=== PATIENT | female | born 1975 ===

== ENCOUNTER 2017-01-02 19:18 | Emergency (ER) | payer MEDICAID ==
[2017-01-02 19:36] VITALS: BP 144/93; PULSE 91; RESP 18; TEMP 98.2; O2SAT 100
--- NOTE | 2017-01-02 20:33 | ED PDOC ---
HPI: Abdomen Time Seen by Provider: 01/02/17 19:42 Chief Complaint (Nursing): Abdominal Pain Chief Complaint (Provider): Abdominal Pain History Per: Patient History/Exam Limitations: no limitations Onset/Duration Of Symptoms: Days (x2) Current Symptoms Are (Timing): Better Additional Complaint(s): Yesika Miranda is a 41 year old female, 4 weeks , with previous medical history of hypertension who presents to the emergency department with a complaint of lower abdominal pain status post sneezing 1 day ago. Denied fever, chills, vaginal bleeding or discharge. Patient feels significant improvement since initial onset but is brought into ED today concerned for . PMD: none provided Past Medical History Reviewed: Historical Data, Nursing Documentation, Vital Signs Vital Signs: Last Vital Signs Temp 98.2 F 01/02/17 19:33 Pulse 91 H 01/02/17 19:33 Resp 18 01/02/17 19:33 BP 144/93 H 01/02/17 19:33 Pulse Ox 100 01/02/17 20:35 - Medical History PMH: HTN - Family History Family History: States: Unknown Family Hx - Social History Current smoker - smoking cessation education provided: No Alcohol: None Drugs: Denies - Allergies Allergies/Adverse Reactions: Allergies Allergy/AdvReac Type Severity Reaction Status Date / Time Latex, Natural Rubber Allergy RASH Verified 01/02/17 19:33 vanilla Allergy RASH Uncoded 01/02/17 19:32 Review of Systems ROS Statement: Except As Marked, All Systems Reviewed And Found Negative Constitutional: Negative for: Fever, Chills Gastrointestinal: Positive for: Abdominal Pain (lower) Genitourinary Female: Negative for: Vaginal Discharge, Vaginal Bleeding Physical Exam - Reviewed Nursing Documentation Reviewed: Yes - Physical Exam Appears: Positive for: Well, Non-toxic, No Acute Distress Head Exam: Positive for: ATRAUMATIC, NORMAL INSPECTION, NORMOCEPHALIC Skin: Positive for: Normal Color Cardiovascular/Chest: Positive for: Regular Rate, Rhythm Respiratory: Positive for: CNT, Normal Breath Sounds Gastrointestinal/Abdominal: Positive for: Tenderness (suprapubic ). Negative for: Normal Exam Extremity: Positive for: Normal ROM Neurologic/Psych: Positive for: Alert, doctor of naprapathy II-XII, Oriented - ECG O2 Sat by Pulse Oximetry: 100 (RA) Pulse Ox Interpretation: Normal Medical Decision Making Medical Decision Making: Initial Impression: Abdominal pain; Initial Plan: * Urine dipstick * Urinalysis * US transvag Time: 2213 --US transvag FINDINGS: Fetus: There is a single living intrauterine gestation in breech presentation. There is a heart rate of 167 beats minute. Placenta: Placenta is posteriofundal and grade 0. There is no previa. Amniotic fluid: Amniotic fluid line appears normal Anatomy: Early gestational age limits evaluation of anatomy., Body and upper extremities were identified BIOMETRICS Gestational age by US: 17 weeks 1 day EFW: 177.7 g BPD: 3.7 cm, 17 weeks 2 days HC: 13.5 cm, 17 weeks 0 days AC: 10.99 cm, 16 weeks 6 days FL: 2.38 cm, 17 weeks 1 day MATERNAL: Cervix: Cervix measures approximately 4.7 cm in length transabdominally. IMPRESSION: 17 week 1 day single breech fetus, estimated date of delivery ; no previa Time: 2219 --Patient informed of results. She continues to feel well in ED and will follow up with [employer]ERO[employer] ATTENDANT. Clinical Impression: Abdominal pain; Scribe Attestation: Documented by Grace Olguin, acting as a scribe for Khris Strickland MD. Provider Scribe Attestation: All medical record entries made by the Scribe were at my direction and personally dictated by me. I have reviewed the chart and agree that the record accurately reflects my personal performance of the history, physical exam, medical decision making, and the department course for this patient. I have also personally directed, reviewed, and agree with the discharge instructions and disposition. Disposition - Clinical Impression Clinical Impression: Abdominal pain during - Patient ED Disposition Is Patient to be Admitted: No Doctor Will See Patient In The: Office Counseled Patient/Family Regarding: Studies Performed, Diagnosis, Need For Followup, Rx Given - Disposition Disposition: Routine/Home Disposition Time: 22:20 Condition: STABLE Instructions: Abdominal Pain in (ED) Forms: [facility] ([place] Islander)
[2017-01-02 20:48] LABS: URINE BILIRUBIN NEGATIVE (NEGATIVE); URINE BLOOD NEGATIVE (NEGATIVE); URINE COLOR YELLOW (YELLOW); URINE GLUCOSE (UA) NEG (Normal); URINE KETONE NEGATIVE (NEGATIVE); URINE LEUKOCYTE ESTERASE TRACE Leu/uL (Negative); URINE PROTEIN NEGATIVE (NEGATIVE); URINE UROBILINOGEN 0.2-1.0 mg/dL (0.2-1.0)
--- NOTE | 2017-01-02 22:14 | US ---
EXAM: US After First Trimester, Transabdominal CLINICAL HISTORY: 41 years old, female; Pain; Other: Abd pain; Gestational age or lmp: 09/12/16; ; Additional info: Preg vag bld TECHNIQUE: Real-time transabdominal obstetrical ultrasound of the maternal pelvis and a second or third trimester with image documentation. EXAM DATE/TIME: 01/02/2017 7:49 PM COMPARISON: There are no prior studies for comparison. FINDINGS: Fetus: There is a single living intrauterine gestation in breech presentation. There is a heart rate of 167 beats minute. Placenta: Placenta is posteriofundal and grade 0. There is no previa. Amniotic fluid: Amniotic fluid line appears normal Anatomy: Early gestational age limits evaluation of anatomy., Body and upper extremities were identified BIOMETRICS Gestational age by US: 17 weeks 1 day EFW: 177.7 g BPD: 3.7 cm, 17 weeks 2 days HC: 13.5 cm, 17 weeks 0 days AC: 10.99 cm, 16 weeks 6 days FL: 2.38 cm, 17 weeks 1 day MATERNAL: Cervix: Cervix measures approximately 4.7 cm in length transabdominally. IMPRESSION: 17 week 1 day single breech fetus, estimated date of delivery 06/11/17; no previa
== END 2017-01-02 22:34 | disposition home or self-care (01) ==
LOC: H.ER 19:18
DX: O26.892 Other specified pregnancy related conditions, second trimester (principal)

== ENCOUNTER 2017-02-26 15:33 | Emergency (ER) | payer MEDICAID ==
--- NOTE | 2017-02-26 19:31 | OBHP ---
Datetime: 02/26/2017 17:35 IP Adm Impression: , intrauterine IP Admit Plan: Discharge home Admit Comment, IP Provider: 41 yo female at 24 weeks 4 days gestation confirmed by US at 5 week s with FRANCIS on 06/14 presents with reduced movments since 6am this morning. States that she was visiting her OB and was advised to go to the ED to be evaluated. Denies vaginal bleeding, gush of flu id, contractions, fever, cough, dysuria, n/v/d, CP, SOB. Prental Care: Pt sees Dr. North at [facility]. States that she does not have any paperw ork with her but reports that her PNC has been normal thus far and denies any abnormal lab or imaging results. Obstretrics Hx: First . Denies abortions, or miscarriages. [employer] Attendant History: Papsmear done 1 year ago normal as per patient PMHx: Newly diagnosed Chronic HTN (3 months before ) No surgical Hx Medication: Methyldopa 250 mg, PNV, Folic Acid Allergies: Latex (rash) Social Hx: Denies smoking, alcohol, or drug use Triage Vitals: BP 122/60, Afebrile Physical Exam: General: Pt seen lying in bed comfortably, Alert and Oriented HEENT: No pallor, facial edema, or jaundice CV: RRR, Normal S1, S2, no murmurs, No pedal edema Pulm: Not in any respiratory disress Abdomen: Gravid, NT FHR: 140's, moderate variability, accelerations, no decels (Catergory I) Assessment and Plan: IUP at 24 weeks 4 days gestation, not in active labor. Patient states she is now experiencing feta l movements. FHR tracings are reassuring. Will be discharged and is advised to f/u with OB appt as sc heduled. labor precautions given. Discussed case with Dr. Susan Black, PGY1 OB H addendum: OB hospitalist addendum Patient seen in examined by me. Agree with above assessment and plan with following modification. O: heart rate 140s positive positive accelerations to the 160 moderate variability toco show s no contractions Impression reactive nonstress test Plan: DC home Follow up as scheduled for next OB appointment. Pelvic Type - PN: Adequate Extremities - PN: Normal Abdomen - PN: Normal Back - PN: Normal Breast - PN: Normal Lungs - PN: Normal Heart - PN: Normal Thyroid - PN: Normal Neurologic - PN: Normal HEENT - PN: Normal General - PN: Normal FHR - Baseline A Provider: 140 EGA AdmitDate IP: 24.0 Vital Signs Provider: Reviewed; Within Normal Limits IP Chief Complaint: Decreased movement NICHD Variability Prov Fetus A: Moderate 6-25bpm NICHD Accel Fetus A IP Provider: 10X10 FHR Category Provider Fetus A: Category I NICHD Decel Fetus A IP Provider: None Genitourinary Exam: Normal DTRs - PN: Normal
[2017-02-26 21:34] VITALS: BP 128/78; PULSE 89
== END 2017-02-26 17:00 | disposition home or self-care (01) ==
LOC: H.EROB2 15:33 → H.L&D 16:06 → H.EROB2 17:00
DX: O47.02 False labor before 37 completed weeks of gestation, second trimester (principal); Z3A.24 24 weeks gestation of pregnancy

== ENCOUNTER 2018-08-30 13:55 | Emergency (ER) | payer BC, OTHER ==
[2018-08-30 14:00] VITALS: TEMP 97.5; O2SAT 100
--- NOTE | 2018-08-30 14:39 | ED PDOC ---
Upper Extremity Pain/Injury Time Seen by Provider: 08/30/18 14:02 Chief Complaint (Nursing): Abnormal Skin Integrity Chief Complaint (Provider): Abnormal Skin Integrity History Per: Patient History/Exam Limitations: no limitations Onset/Duration Of Symptoms: Mins (just [employer] PROFESSIONAL) Additional Complaint(s): 42 year old right-hand dominant female with a medical history of hypertension, arrives to the emergency department with complaints of pain to her right, 4th finger status post slicing her finger on a soup can lid prior to arrival. She reports washing the wound immediately with soap and water but did not take pain medication upon onset as she had taken Tylenol around 1130am prior to this incident. Patient is presumably up-to-date with tetanus shot from last year. No other complaints. Denies recent fever, loss of sensation. PCP: Dr. Nuha Alvarado Past Medical History Reviewed: Historical Data, Nursing Documentation, Vital Signs Vital Signs: Last Vital Signs Temp 97.5 F L 08/30/18 13:56 Pulse 83 08/30/18 13:56 Resp 17 08/30/18 13:56 BP 168/90 H 08/30/18 13:56 Pulse Ox 100 08/30/18 13:56 - Medical History PMH: HTN - Family History Family History: States: Unknown Family Hx - Immunization History Hx Tetanus Toxoid Vaccination: Yes - Home Medications Home Medications: Ambulatory Orders Medication Instructions Recorded Acetaminophen [Acetaminophen 8 650 mg PO Q8 PRN #21 tablet.er 08/30/18 Hour] Bacitracin Ointment [Bacitracin] 1 applic TOP BID #1 tube 08/30/18 - Allergies Allergies/Adverse Reactions: Allergies Allergy/AdvReac Type Severity Reaction Status Date / Time Latex, Natural Rubber Allergy RASH Verified 01/02/17 19:33 vanilla Allergy RASH Uncoded 01/02/17 19:32 Review of Systems ROS Statement: Except As Marked, All Systems Reviewed And Found Negative Musculoskeletal: Positive for: Other (right hand, 4th digit laceration) Physical Exam - Reviewed Nursing Documentation Reviewed: Yes Vital Signs Reviewed: Yes - Physical Exam Comments: GENERAL APPEARANCE: Patient is awake, alert, oriented x 3, in no acute distress. Resting comfortably. SKIN: Warm, dry; (-) cyanosis. NECK: Supple, FROM ENT: Mucus membranes moist. Airway patent, (-) stridor. CHEST AND RESPIRATORY:(-) rales, (-) rhonchi, (-) wheezes; breath sounds equal bilaterally. Respirations even and nonlabored. HEART AND CARDIOVASCULAR: (-) irregularity UPPER EXTREMITIES: To the radial aspect of the distal right 4th phalanx just p roximal to nail (+) 0.75cm linear, superficial laceration, (+) active bleeding, and (+) mild, localized tenderness (-) ecchymosis (-) surrounding erythema or cellulitis (-) edema (-) nail involvement. Sensation intact throughout. Normal ROM of right hand, wrist, and all digits. Cap refill <2 seconds. NEURO AND PSYCH: Mental status as above. Gait: steady. Speech: clear. (-) facial asymmetry. - ECG O2 Sat by Pulse Oximetry: 100 (RA) Pulse Ox Interpretation: Normal Medical Decision Making Medical Decision Making: Initial Impression: finger laceration of rigth 4th digit Initial Plan: * Dermabond for wound closure * Wound irrigated with normal saline and betadine solution. * Patient declined pain medication in ED. Time: 1435 --Laceration repair of right 4th digit performed with Dermabond by Carmine PAGE. Patient tolerated procedure well. No complications. Educated on wound care. --Repeat BP: 138/78. Lab/Diagnostic results d/w the patient in great detail. Diagnosis of finger laceration d/w the patient. Based on history, exam and diagnostic results, plan will be for outpatient follow up with PMD. Patient instructed to follow-up with pmd / referral provided / the clinic in 1- 2 days without fail. Advised to take medication as prescribed. Return to the emergency room at any time for any new or worsening symptoms. Patient states she fully agrees with and understands discharge instructions. States that she agrees with the plan and disposition. Verbalized and repeated discharge in structions and plan. I have given the patient opportunity to ask any additional questions. Scribe Attestation: Documented by Grace Olguin, acting as a scribe for Cindi Lou PA-C. Provider Scribe Attestation: All medical record entries made by the Scribe were at my direction and personally dictated by me. I have reviewed the chart and agree that the record accurately reflects my personal performance of the history, physical exam, medical decision making, and the department course for this patient. I have also personally directed, reviewed, and agree with the discharge instructions and disposition. Procedures - Laceration/Wound Repair Finger Laceration- R 4th Digit Wound Length (cm): 0.75 Wound's Depth, Shape: superficial, linear Wound Explored: clean Irrigated w/ Saline (ccs): 100 Betadine Prep?: Yes Wound Debrided: minimal Wound Repaired With: Skin adhesive Layer Closure?: No Wound Complexity: Simple Disposition - Clinical Impression Clinical Impression: Finger laceration - Patient ED Disposition Is Patient to be Admitted: No Counseled Patient/Family Regarding: Studies Performed, Diagnosis, Need For Followup, Rx Given - Disposition Referrals: primary, doctor [Other] Jackelin Oliver MD [Medical Doctor] - Disposition: Routine/Home Disposition Time: 14:40 Condition: STABLE Additional Instructions: The emergency medical care you received today was directed at your acute symptoms. If you were prescribed any medication, please fill it and take as directed. It may take several days for your symptoms to resolve. Return to the Emergency Department if your symptoms worsen, do not improve, or if you have any other problems. Please contact your doctor in 2 days for re-evaluation and follow up / or call one of the physicians/clinics you have been referred to that are listed on the Patient Visit Information form that is included in your discharge packet. Bring any paperwork you were given at discharge with you along with any medications you are taking to your follow up visit. Our treatment cannot replace ongoing medical care by a primary care provider (PCP) outside of the emergency departme . Prescriptions: Acetaminophen [Acetaminophen 8 Hour] 650 mg PO Q8 PRN #21 tablet.er PRN Reason: Pain, Moderate (4-7) Bacitracin Ointment [Bacitracin] 1 applic TOP BID #1 tube Instructions: Laceration Repair With Glue (DC), Wound Care, Common Finger Injuries Forms: [facility] ([place]), [facility] ED School/Work Excuse Print Language: [place]ISH - POA Present On Arrival: None
[2018-08-30 15:00] VITALS: BP 138/78; PULSE 70; RESP 18
== END 2018-08-30 16:32 | disposition home or self-care (01) ==
LOC: H.ER 13:55
DX: S61.214A Laceration without foreign body of right ring finger without damage to nail, initial encounter (principal); W26.8XXA Contact with other sharp object(s), not elsewhere classified, initial encounter; Y92.89 Other specified places as the place of occurrence of the external cause; I10 Essential (primary) hypertension